=== PATIENT | male | born 1970 | race Caucasian/White ===

== ENCOUNTER 2017-06-26 07:42 | Day surgery (SDC) | payer BC ==
[~2017-06-26] VITALS: Ht 172.7 cm; Wt 72.6 kg
[2017-06-26] MEDS ORDERED: CLINDAMYCIN PHOS 600 MG/ D5W 50 ML PREMIX IV ONE (08:15)
[2017-06-26] MEDS ORDERED: ROCURONIUM BROMIDE 10 MG/ML (ZEMURON) IV ONE (10:05)
[2017-06-26] MEDS ORDERED: SEVOFLURANE 15 MIN GAS INH ONE (10:05)
[2017-06-26] MEDS ORDERED: PROPOFOL 200MG/ 20ML VIAL (DIPRIVAN) IV ONE (10:05)
[2017-06-26] MEDS ORDERED: CLINDAMYCIN PHOSPHATE 600 mg/50mL D5W IV ONE (10:05)
[2017-06-26] MEDS ORDERED: fentaNYL CITRATE/PF 100 MCG/2 ML AMP IVP ONE (10:05)
[2017-06-26] MEDS ORDERED: PHENYLEPHRINE HCL 10 MG/ML VIAL (NEOSYNEPHRINE) IV ONE (10:05)
[2017-06-26] MEDS ORDERED: ONDANSETRON HCL 4 MG/2 ML VIAL IVP ONE (10:05)
[2017-06-26] MEDS ORDERED: NEOSTIGMINE METHYLSULFATE 1 MG/ML, 10 ML VIAL IVP ONE (10:05)
[2017-06-26] MEDS ORDERED: MIDAZOLAM HCL 5 MG/5 ML VIAL IVP ONE (10:05)
[2017-06-26] MEDS ORDERED: FLUMAZENIL 0.1 MG/ML IVP ONE (10:05)
[2017-06-26] MEDS ORDERED: GLYCOPYRROLATE 0.2 MG/ML VIAL IJ ONE (10:05)
[2017-06-26] MEDS ORDERED: DEXAMETHASONE SOD PHOSPHATE 4 MG/ML VIAL IVP ONE (10:05)
[2017-06-26] MEDS ORDERED: LR 1,000 ML IV SCH (10:52)
[2017-06-26] MEDS ORDERED: METOCLOPRAMIDE HCL 10 MG/2 ML VIAL IVP PRN (11:00)
[2017-06-26] MEDS ORDERED: MORPHINE 4 MG/ML INJ. SYRINGE IVP PRN ×2 (11:00)
[2017-06-26] MEDS: MORPHINE 4 MG/ML INJ. SYRINGE IVP PRN ×2 (12:30→12:59)
[2017-06-26] MEDS ORDERED: MORPHINE SULFATE 10 MG/ML VIAL IVP PRN (12:30)
[2017-06-26] MEDS ORDERED: ONDANSETRON HCL 4 MG/2 ML VIAL IVP PRN (12:30)
[2017-06-26] MEDS ORDERED: MORPHINE 4 MG/ML INJ. SYRINGE ONE ×2 (12:30→12:57)
[2017-06-26] MEDS ORDERED: MORPHINE 2 MG/ML INJ. SYRINGE IVP PRN (13:00)
[2017-06-26 13:21] VITALS: BP_SYST 150
[2017-06-26] MEDS: KCL 20 mEq in D5/0.45NS 1000mL 1,000 ML IV SCH ×2 (15:43→22:06)
[2017-06-26 20:00] VITALS: BP_SYST 135
[2017-06-26] MEDS ORDERED: NORMAL SALINE 5 ML DISP.SYRIN IVF SCH (22:00)
[2017-06-26] MEDS: HYDROcodone/ACETAMIN 10-325 MG TAB PO PRN (23:05)
[2017-06-27] VITALS: BP_SYST 120
[2017-06-27] MEDS: KCL 20 mEq in D5/0.45NS 1000mL 1,000 ML IV SCH ×2 (00:27→07:52)
[2017-06-27] MEDS: HYDROcodone/ACETAMIN 10-325 MG TAB PO PRN ×2 (07:51→11:35)
[2017-06-27 08:04] VITALS: BP_SYST 130
[2017-06-27 11:03] VITALS: BP_SYST 131
== END 2017-06-27 11:43 | disposition home or self-care (01) ==
LOC: SMU 07:42 → SDS 07:42 → SMU 13:51 → SDS 06-27 11:43
PROVIDERS: ATTEND Otolaryngology
DX: J35.1 Hypertrophy of tonsils (principal); G47.33 Obstructive sleep apnea (adult) (pediatric); E78.5 Hyperlipidemia, unspecified
CPT/HCPCS: 42145; 71046; 87081; 88304; 88305; J1100; J2250; J2270 ×2; J2370; J2405; J2704; J2710; J3010; J3490 ×3; J7120; 88302